=== PATIENT | female | born 2000 | race Caucasian/White ===

== ENCOUNTER 2024-08-22 18:44 | Inpatient (IN) | payer OTHER ==
[2024-08-22 19:33] VITALS: BMI 61.2
[2024-08-22] MEDS ORDERED: Carboprost 250 MCG/ML AMP IM PRN (20:05)
[2024-08-22] MEDS ORDERED: Tranexamic Acid 1,000 MG/10 ML VIAL IVP PRN (20:05)
[2024-08-22] MEDS ORDERED: Promethazine HCl 25 MG/ML VIAL IM PRN (20:05)
[2024-08-22] MEDS ORDERED: hydrALAZINE 20 MG/ML VIAL SLOW IVP PRN (20:05)
[2024-08-22] MEDS ORDERED: Lidocaine 1% (PF) 30 ML VIAL SC PRN (20:05)
[2024-08-22] MEDS ORDERED: Ibuprofen 800 MG TAB PO PRN (20:05)
[2024-08-22] MEDS ORDERED: Acetaminophen 500 MG TAB PO PRN (20:05)
[2024-08-22] MEDS ORDERED: Ondansetron PF 4 MG/2 ML Vial IVP PRN (20:05)
[2024-08-22] MEDS ORDERED: Diphenoxylate HCl/Atropine Tablet PO PRN (20:05)
[2024-08-22] MEDS ORDERED: Misoprostol 200 MCG TAB PR PRN (20:05)
[2024-08-22] MEDS ORDERED: Oxytocin 30 units/NS 500 ML 500 ML IV SCH (20:15)
[2024-08-22] MEDS ORDERED: Penicillin G Potassium 5 MILL.UNITS in Sodium Chloride 0.9% 100 ML IVPB SCH (20:30)
[2024-08-22 20:37] LABS: Hematocrit 36.5 % (34.9-44.5); Hemoglobin 11.9 g/dL (12.0-15.5); Mean Corpuscular HGB CONC 32.6 g/dL (32.0-36.0); Mean Corpuscular Hemoglobin 27.7 pg (27.0-33.0); Mean Corpuscular Volume 84.9 fL (81.6-98.3); Platelet Count 318 10x3/uL (150-450); RBC Distribution Width 13.9 % (11.5-14.5); White Blood Cell (WBC) Count 16.5 10x3/uL (3.5-10.5)
[2024-08-22 21:09] LABS: HBsAg Index 0.17 S/CO (0-0.99); HIV (1/2) Antibody/Antigen Non-Reactive (NonReactive); HIV 1/2 INDEX 0.06 S/CO (<1.00); Hep B Surf Ag - L&D Non-Reactive S/CO (NonReactive); Syphilis Antibody Nonreactive (Nonreactive); Syphilis Antibody Index 0.04 S/CO (<1.00 Non-Reactive)
[2024-08-22] MEDS: Misoprostol 100 MCG TAB VAG SCH (21:13)
[2024-08-22] MEDS: Labetalol HCl 200 MG TAB PO SCH (21:17)
[2024-08-22 22:06] LABS: ALT (SGPT) 109 U/L (8-55); AST (SGOT) 63 U/L (5-34); Albumin 2.7 g/dL (3.5-5.0); Alkaline Phosphatase 257 U/L (40-110); Anion Gap 14 mmol/L (10-20); BUN (Urea Nitrogen) 10 mg/dL (7.0-18.7); Bilirubin, Total 0.3 mg/dL (0.2-1.2); Calc. Creatinine Clearance 317 mL/min (70-130); Calcium 9.6 mg/dL (7.8-10.44); Carbon Dioxide 19 mmol/L (22-29); Chloride 108 mmol/L (98-107); Estimated GFR 126; Globulin 3.6 g/dL (2.4-3.5); Glucose 89 mg/dL (70-105); Potassium 4.4 mmol/L (3.5-5.1); Protein, Total 6.3 g/dL (6.0-8.3); Sodium 137 mmol/L (136-145)
[2024-08-23 00:02] LABS: Creatinine, Urine 41.21 mg/dL (47-110); Protein, Urine Random Quant Less than 10 mg/dL (1-14)
[2024-08-23 04:17] LABS: ALT (SGPT) 95 U/L (8-55); AST (SGOT) 53 U/L (5-34); Albumin 2.6 g/dL (3.5-5.0); Alkaline Phosphatase 225 U/L (40-110); Anion Gap 14 mmol/L (10-20); BUN (Urea Nitrogen) 8 mg/dL (7.0-18.7); Bilirubin, Total 0.3 mg/dL (0.2-1.2); Calc. Creatinine Clearance 338 mL/min (70-130); Calcium 9.4 mg/dL (7.8-10.44); Carbon Dioxide 19 mmol/L (22-29); Chloride 106 mmol/L (98-107); Estimated GFR 128; Globulin 3.8 g/dL (2.4-3.5); Glucose 88 mg/dL (70-105); Potassium 3.7 mmol/L (3.5-5.1); Protein, Total 6.4 g/dL (6.0-8.3); Sodium 135 mmol/L (136-145)
[2024-08-23] MEDS: Labetalol HCl 200 MG TAB PO SCH (09:27)
[2024-08-23 11:59] LABS: Amphetamine Not Detected (NotDetected); Barbiturates Screen Not Detected (NotDetected); Benzodiazepine Screen Not Detected (NotDetected); Cocaine Metabolite Screen Not Detected (NotDetected); Methadone Not Detected (NotDetected); Methamphetamine Not Detected (NotDetected); Opiate Screen Not Detected (NotDetected); Oxycodone Screen Not Detected (NotDetected); Phencyclidine (PCP) Not Detected (NotDetected); THC/Cannabinoid Screen Not Detected (NotDetected); Tricyclic Screen Not Detected (NotDetected)
[2024-08-23] MEDS: Penicillin G Potassium 5 MILL.UNITS in Sodium Chloride 0.9% 100 ML IVPB SCH (14:08)
[2024-08-23] MEDS: Oxytocin 30 units/NS 500 ML 500 ML IV SCH (14:08)
[2024-08-23] MEDS: Lactated Ringer's 500 ML IV PRN (14:22)
[2024-08-23] MEDS ORDERED: Acetaminophen 325 MG TAB PO PRN (14:27)
[2024-08-23] MEDS ORDERED: Naloxone HCl 0.4 mg/ml Vial IVP PRN ×2 (14:27)
[2024-08-23] MEDS ORDERED: diphenhydrAMINE 50 MG/ML VIAL IVP PRN (14:27)
[2024-08-23] MEDS ORDERED: ePHEDrine Sulfate 50 MG/10 ML VIAL SLOW IVP PRN (14:27)
[2024-08-23] MEDS ORDERED: Moisturizing Cream (Eucerin) 113 GM JAR TOP PRN (14:27)
[2024-08-23] MEDS ORDERED: Promethazine HCl 25 MG/ML VIAL IM PRN (14:27)
[2024-08-23] MEDS ORDERED: Communication Order-Pharmacy FS SCH (14:30)
[2024-08-23] MEDS: fentaNYL 2 mcg/Ropivacaine 0.2% Epidural 100 ML CADD EPIDURAL SCH (14:50)
[2024-08-23] MEDS: Penicillin G 2.5 MILL.units 2.5 MILL.UNITS in Premix 1 BAG IVPB SCH (17:57)
[2024-08-23] MEDS: fentaNYL/Ropivacaine Epidural 100 ML ONE (20:20)
[2024-08-23] MEDS: Ondansetron PF 4 MG/2 ML Vial IVP PRN (22:53)
[2024-08-24] MEDS ORDERED: Bicitra 30 ML UDCUP PO PRN (12:56)
[2024-08-24] MEDS: Azithromycin 500 MG in Sodium Chloride 0.9% 250 ML 250 ML IVPB SCH (13:41)
[2024-08-24] MEDS: Famotidine/PF 20 mg/2ml Vial SLOW IVP PRN (13:41)
[2024-08-24] MEDS: CEFAZOLIN 2 GM in Sodium Chloride 0.9% 100 ML IVPB SCH (13:41)
[2024-08-24] MEDS ORDERED: hydrALAZINE 20 MG/ML VIAL SLOW IVP PRN (15:21)
[2024-08-24] MEDS ORDERED: Methylergonovine 0.2 MG/ML VIAL IM PRN (15:21)
[2024-08-24] MEDS ORDERED: Promethazine HCl 25 MG/ML VIAL IM PRN ×2 (15:21→15:29)
[2024-08-24] MEDS ORDERED: Misoprostol 200 MCG TAB PR PRN (15:21)
[2024-08-24] MEDS ORDERED: Bisacodyl 10 MG SUPP PR PRN (15:21)
[2024-08-24] MEDS ORDERED: Ondansetron PF 4 MG/2 ML Vial IVP PRN ×3 (15:21→15:29)
[2024-08-24] MEDS ORDERED: Naloxone HCl 0.4 mg/ml Vial IV PRN (15:29)
[2024-08-24] MEDS ORDERED: Naloxone HCl 0.4 mg/ml Vial IVP PRN ×2 (15:29)
[2024-08-24] MEDS ORDERED: fentaNYL 50 mcg/mL 1 mL Vial SLOW IVP PRN (15:29)
[2024-08-24] MEDS ORDERED: Moisturizing Cream (Eucerin) 113 GM JAR TOP PRN (15:29)
[2024-08-24] MEDS ORDERED: Meperidine HCl/PF 25 MG (1 mL) VIAL SLOW IVP PRN (15:29)
[2024-08-24] MEDS ORDERED: diphenhydrAMINE 50 MG/ML VIAL IVP PRN (15:29)
[2024-08-24] MEDS ORDERED: Communication Order-Pharmacy FS SCH (15:30)
[2024-08-24] MEDS ORDERED: Oxytocin 30 units/NS 500 ML 500 ML IV SCH (15:30)
[2024-08-24] MEDS ORDERED: Ketorolac Tromethamine 30 MG (1 mL) VIAL IVP SCH (15:30)
[2024-08-24] MEDS: Diphenoxylate HCl/Atropine Tablet PO PRN (16:05)
[2024-08-24] MEDS: Dexmedetomidine 200 MCG/2 ML VIAL ONE ×2 (19:33→19:35)
[2024-08-24] MEDS: Lidocaine 2% MPF 10 ML AMP (For Epidural Use) ONE (19:34)
[2024-08-24] MEDS: Dexamethasone 10 MG/ML VIAL ONE (19:34)
[2024-08-24] MEDS: Ondansetron PF 4 MG/2 ML Vial ONE (19:34)
[2024-08-24] MEDS: Metoclopramide HCl 10 MG (2 mL) VIAL ONE (19:34)
[2024-08-24] MEDS: Promethazine HCl 25 MG/ML VIAL ONE (19:34)
[2024-08-24] MEDS: Oxytocin 10 UNITS/ML VIAL ONE ×2 (19:35→19:36)
[2024-08-24] MEDS: Carboprost 250 MCG/ML AMP ONE (19:35)
[2024-08-24] MEDS: Erythromycin Base 0.5% Oint 1 GM TUBE ONE (19:35)
[2024-08-24] MEDS: Morphine PF 10 MG/10 ML VIAL ONE (19:35)
[2024-08-24] MEDS: PHENYLEPHRINE-NS 100 MCG/ML 10 ML SYRINGE ONE (19:35)
[2024-08-24] MEDS: Ketorolac Tromethamine 30 MG (1 mL) VIAL IVP SCH (21:32)
[2024-08-24] MEDS: Docusate 100 MG CAP PO SCH (21:32)
[2024-08-24] MEDS: Labetalol HCl 200 MG TAB PO SCH (21:50)
[2024-08-25 04:40] LABS: #Basophils 0.05 10x3/uL (0.0-0.2); #Monocytes 1.95 10x3/uL (0.0-1.1); #Neutrophils 19.49 10x3/uL (1.5-8.4); %Basophils 0.2 % (0.0-2.0); %Lymphocytes 10.2 % (18.0-47.0); %Monocytes 8.1 % (0.0-10.0); Hematocrit 30.9 % (34.9-44.5); Hemoglobin 10.6 g/dL (12.0-15.5); Mean Corpuscular HGB CONC 34.3 g/dL (32.0-36.0); Mean Corpuscular Hemoglobin 28.7 pg (27.0-33.0); Mean Corpuscular Volume 83.7 fL (81.6-98.3); Mean Platelet Volume 10.1 fL (7.4-10.4); Platelet Count 307 10x3/uL (150-450); RBC Distribution Width 13.8 % (11.5-14.5); Red Blood Cell (RBC) Count 3.69 10x6/uL (3.90-5.03); White Blood Cell (WBC) Count 24.1 10x3/uL (3.5-10.5)
[2024-08-25] MEDS: Boostrix 0.5 ML (Tdap) VIAL (>/=7 yrs of age) IM ONE (07:30)
[2024-08-25] MEDS: Hepatitis B Vaccine 10 MCG/0.5 ML SYR ONE (07:30)
[2024-08-25] MEDS: Phytonadione Neonatal 1 MG/0.5 ML AMP ONE (07:30)
[2024-08-25] MEDS: Penicillin G 2.5 MILL.units 2.5 MILL.UNITS in Premix 1 BAG IVPB SCH (07:40)
[2024-08-25] MEDS: Labetalol HCl 200 MG TAB PO SCH (09:28)
[2024-08-25] MEDS: HYDROcodone/Acetaminophen 5/325 mg Tablet PO PRN (09:29)
[2024-08-25] MEDS: Ibuprofen 800 MG TAB PO SCH (16:30)
[2024-08-26] MEDS: Acetaminophen 325 MG TAB PO PRN (07:49)
[2024-08-26 09:36] LABS: #Basophils 0.08 10x3/uL (0.0-0.2); #Eosinophils 0.38 10x3/uL (0.0-0.5); #Monocytes 1.04 10x3/uL (0.0-1.1); #Neutrophils 9.23 10x3/uL (1.5-8.4); %Basophils 0.6 % (0.0-2.0); %Eosinophils 2.8 % (0.0-6.0); %Lymphocytes 21.7 % (18.0-47.0); %Monocytes 7.6 % (0.0-10.0); %Neutrophils 67.1 % (40.0-75.0); Hematocrit 30.7 % (34.9-44.5); Hemoglobin 10.3 g/dL (12.0-15.5); Mean Corpuscular HGB CONC 33.6 g/dL (32.0-36.0); Mean Corpuscular Hemoglobin 28.5 pg (27.0-33.0); Mean Platelet Volume 9.9 fL (7.4-10.4); Platelet Count 292 10x3/uL (150-450); RBC Distribution Width 14.2 % (11.5-14.5); Red Blood Cell (RBC) Count 3.61 10x6/uL (3.90-5.03); White Blood Cell (WBC) Count 13.8 10x3/uL (3.5-10.5)
[2024-08-26 09:49] LABS: ALT (SGPT) 62 U/L (8-55); AST (SGOT) 47 U/L (5-34); Albumin 2.4 g/dL (3.5-5.0); Alkaline Phosphatase 170 U/L (40-110); Anion Gap 13 mmol/L (10-20); BUN (Urea Nitrogen) 14 mg/dL (7.0-18.7); Bilirubin, Total 0.2 mg/dL (0.2-1.2); Calc. Creatinine Clearance 298 mL/min (70-130); Calcium 8.8 mg/dL (7.8-10.44); Carbon Dioxide 20 mmol/L (22-29); Chloride 111 mmol/L (98-107); Estimated GFR 124; Globulin 3.5 g/dL (2.4-3.5); Glucose 81 mg/dL (70-105); Potassium 4.1 mmol/L (3.5-5.1); Protein, Total 5.9 g/dL (6.0-8.3); Sodium 140 mmol/L (136-145)
[2024-08-26 11:10] VITALS: BP 126/57; TEMP 98.3
== END 2024-08-26 17:05 | disposition home or self-care (01) | DRG 788 ==
LOC: CSHLD 18:44 → CSHPP 08-24 18:08
PROVIDERS: ADMIT Family Medicine; ATTEND Family Medicine
PROC: 10D00Z1 Extraction of Products of Conception, Low, Open Approach (ICD-10-PCS; principal; 2024-08-24)
DX: O13.4 Gestational [pregnancy-induced] hypertension without significant proteinuria, complicating childbirth (principal); Z3A.38 38 weeks gestation of pregnancy; Z37.0 Single live birth; Z79.899 Other long term (current) drug therapy; Z79.82 Long term (current) use of aspirin; O99.824 Streptococcus B carrier state complicating childbirth; Z87.891 Personal history of nicotine dependence; O99.214 Obesity complicating childbirth; E66.813 Obesity, class 3
CPT/HCPCS: 36415; 51702; 59200; 80053; 80306; 82570; 84156; 85025; 85027; 86780; 86850; 86900; 86901; 87340; 87389; J0456; J1100; J1885; J2274; J2405; J2540; J2550; J2590; J2765; J3490; J7050; J7120

== ENCOUNTER 2024-08-30 16:02 | Observation (INO) | payer OTHER ==
[2024-08-30] MEDS ORDERED: hydrALAZINE 20 MG/ML VIAL SLOW IVP PRN (16:47)
[2024-08-30] MEDS ORDERED: Lorazepam 2 MG/ML VIAL SLOW IVP PRN (16:47)
[2024-08-30] MEDS ORDERED: Labetalol HCl 100 MG/20 ML VIAL SLOW IVP PRN ×3 (16:47)
[2024-08-30] MEDS ORDERED: Calcium Gluc 4.6 MEQ/10 ML (100 MG/ML) SLOW IVP PRN (16:47)
[2024-08-30 16:48] VITALS: BMI 58.0
[2024-08-30 17:32] LABS: Creatinine, Urine 104.61 mg/dL (47-110)
[2024-08-30] MEDS: Acetaminophen 500 MG TAB PO SCH (17:34)
[2024-08-30 17:38] LABS: #Basophils 0.05 10x3/uL (0.0-0.2); #Eosinophils 0.01 10x3/uL (0.0-0.5); #Monocytes 0.89 10x3/uL (0.0-1.1); #Neutrophils 9.59 10x3/uL (1.5-8.4); %Basophils 0.4 % (0.0-2.0); %Eosinophils 0.1 % (0.0-6.0); %Lymphocytes 20.5 % (18.0-47.0); %Monocytes 6.7 % (0.0-10.0); %Neutrophils 71.8 % (40.0-75.0); Hematocrit 34.1 % (34.9-44.5); Hemoglobin 11.1 g/dL (12.0-15.5); Mean Corpuscular HGB CONC 32.6 g/dL (32.0-36.0); Mean Corpuscular Hemoglobin 28.2 pg (27.0-33.0); Mean Corpuscular Volume 86.8 fL (81.6-98.3); Mean Platelet Volume 9.4 fL (7.4-10.4); Platelet Count 385 10x3/uL (150-450); RBC Distribution Width 13.7 % (11.5-14.5); Red Blood Cell (RBC) Count 3.93 10x6/uL (3.90-5.03); White Blood Cell (WBC) Count 13.3 10x3/uL (3.5-10.5)
[2024-08-30 17:56] LABS: ALT (SGPT) 41 U/L (8-55); AST (SGOT) 31 U/L (5-34); Alkaline Phosphatase 170 U/L (40-110); Anion Gap 13 mmol/L (10-20); BUN (Urea Nitrogen) 15 mg/dL (7.0-18.7); Bilirubin, Total 0.3 mg/dL (0.2-1.2); Calc. Creatinine Clearance 252 mL/min (70-130); Calcium 9.1 mg/dL (7.8-10.44); Carbon Dioxide 25 mmol/L (22-29); Chloride 106 mmol/L (98-107); Estimated GFR 113; Globulin 3.7 g/dL (2.4-3.5); Glucose 86 mg/dL (70-105); Potassium 3.7 mmol/L (3.5-5.1); Protein, Total 6.7 g/dL (6.0-8.3); Sodium 140 mmol/L (136-145)
[2024-08-30] MEDS ORDERED: Promethazine HCl 25 MG/ML VIAL IM PRN (19:00)
[2024-08-30] MEDS ORDERED: Ondansetron PF 4 MG/2 ML Vial IVP PRN (19:00)
[2024-08-30] MEDS: NIFEdipine XL 30 MG ER.TAB PO SCH (19:23)
[2024-08-30] MEDS: Furosemide 40 MG (4 mL) VIAL SLOW IVP SCH (19:24)
[2024-08-30] MEDS: hydrALAZINE 20 MG/ML VIAL SLOW IVP PRN (19:35)
[2024-08-30] MEDS: Labetalol HCl 200 MG TAB PO SCH (20:56)
[2024-08-30] MEDS: Ibuprofen 800 MG TAB PO PRN (22:23)
[2024-08-31 05:02] LABS: Creatinine, Urine 256.63 mg/dL (47-110)
[2024-08-31] MEDS: Furosemide 40 MG (4 mL) VIAL SLOW IVP SCH (05:51)
[2024-08-31 06:28] LABS: ALT (SGPT) 39 U/L (8-55); AST (SGOT) 24 U/L (5-34); Albumin 3.2 g/dL (3.5-5.0); Alkaline Phosphatase 171 U/L (40-110); Anion Gap 16 mmol/L (10-20); BUN (Urea Nitrogen) 17 mg/dL (7.0-18.7); Bilirubin, Total 0.2 mg/dL (0.2-1.2); Calc. Creatinine Clearance 233 mL/min (70-130); Calcium 8.9 mg/dL (7.8-10.44); Carbon Dioxide 25 mmol/L (22-29); Chloride 105 mmol/L (98-107); Estimated GFR 103; Globulin 3.8 g/dL (2.4-3.5); Glucose 81 mg/dL (70-105); Potassium 3.7 mmol/L (3.5-5.1); Sodium 142 mmol/L (136-145)
[2024-08-31 06:43] LABS: #Basophils 0.08 10x3/uL (0.0-0.2); #Eosinophils 0.49 10x3/uL (0.0-0.5); #Monocytes 0.86 10x3/uL (0.0-1.1); #Neutrophils 8.59 10x3/uL (1.5-8.4); %Basophils 0.6 % (0.0-2.0); %Eosinophils 3.6 % (0.0-6.0); %Monocytes 6.3 % (0.0-10.0); %Neutrophils 62.3 % (40.0-75.0); Hematocrit 37.3 % (34.9-44.5); Mean Corpuscular HGB CONC 32.2 g/dL (32.0-36.0); Mean Corpuscular Hemoglobin 27.6 pg (27.0-33.0); Mean Corpuscular Volume 85.9 fL (81.6-98.3); Mean Platelet Volume 9.3 fL (7.4-10.4); Platelet Count 416 10x3/uL (150-450); RBC Distribution Width 13.6 % (11.5-14.5); Red Blood Cell (RBC) Count 4.34 10x6/uL (3.90-5.03); White Blood Cell (WBC) Count 13.8 10x3/uL (3.5-10.5)
[2024-08-31] MEDS ORDERED: NIFEdipine XL 30 MG ER.TAB PO SCH (09:00)
[2024-08-31] MEDS: NIFEdipine XL 30 MG ER.TAB PO SCH (09:13)
[2024-08-31] MEDS: Ferrous Sulfate 325 MG TAB PO SCH (09:14)
[2024-08-31] MEDS: Pantoprazole DR 40 MG TAB PO SCH (09:14)
[2024-08-31] MEDS: Ibuprofen 200 MG TAB PO PRN (14:20)
[2024-08-31 17:08] VITALS: BP 132/63; TEMP 98.4
== END 2024-08-31 18:30 | disposition home or self-care (01) ==
LOC: CSHSDC/OP 16:02 → CSHLD 19:00 → CSHPP 20:30
PROVIDERS: ADMIT Family Medicine; ATTEND Family Medicine
DX: O16.5 Unspecified maternal hypertension, complicating the puerperium (principal); O90.6 Postpartum mood disturbance; O12.05 Gestational edema, complicating the puerperium; O34.211 Maternal care for low transverse scar from previous cesarean delivery; Z79.899 Other long term (current) drug therapy
CPT/HCPCS: 36415; 80053; 82570; 83880; 84156; 85025; 96374; 96375; 96376; 99285; G0378; J0360; J1940